=== PATIENT | male | born 1930 | race Caucasian/White ===

== ENCOUNTER 2016-12-07 11:57 | Inpatient (IN) | payer OTHER ==
[~2016-12-07] VITALS: Ht 167.6 cm; Wt 65.2 kg
[2016-12-07] MEDS ORDERED: SODIUM CHLORIDE 0.9% 1,000 ML IV ONE (12:20)
[2016-12-07 12:49] LABS: Basophils # (auto) 0 uL; CONDITION Y; Eosinophils # (auto) 0 uL; Hematocrit 41.9 % (41.0-53.0); Hemoglobin 14.5 g/dL (13.5-17.5); Lymphocytes # (auto) 0.6 uL; Lymphocytes % (auto) 4.7 % (10.0-50.0); Mean Corpuscular Hgb Conc. 34.7 g/dL (32.0-36.0); Mean Corpuscular Volume 92.3 fL (80.0-100.0); Mean Platelet Volume 7.8 fL (7.4-10.4); Monocytes # (auto) 0.9 uL; Monocytes % (auto) 6.9 % (0.0-12.0); Neutrophils # (auto) 11.9 uL; Neutrophils % (auto) 88.4 % (37.0-80.0); Platelet Count (auto) 213 10^3/uL (140-450); Red Cell Distribution Width 13.5 % (11.6-16.0); White Blood Cell 13.4 10^3/uL (4.4-10.8)
[2016-12-07 14:07] LABS: Anion Gap 8 (5-15); Blood Urea Nitrogen 11 mg/dL (7-18); Calcium 8.1 mg/dL (8.5-10.1); Carbon Dioxide 24 mmol/L (21-32); Chloride 100 mmol/L (98-107); Glucose 152 mg/dL (74-106); Potassium 4.3 mmol/L (3.5-5.1); Sodium 132 mmol/L (136-145)
[2016-12-07 14:10] LABS: Aspartate Aminotransferase 25 U/L (15-37); BUN/Creatinine Ratio 11.7; GFR African American 97 mL/min; GFR Non-African American 81 mL/min
[2016-12-07 14:15] LABS: Alkaline Phosphatase 78 U/L (45-117); Bilirubin, Total 1.2 mg/dL (0.2-1.0); Total Protein 7.4 g/dL (6.4-8.2)
[2016-12-07] MEDS ORDERED: cefTRIAXone 1GM/50ML D5W 50 ML IV ONE (15:00)
[2016-12-07] MEDS ORDERED: MORPHINE SULF INJ 2 MG/ML SYRINGE 1ML IV PRN ×2 (15:00→15:15)
[2016-12-07] MEDS ORDERED: DEXTROSE (50%) 50ML SYRG IV PRN (15:00)
[2016-12-07] MEDS ORDERED: NITROGLYCERIN 0.4 MG SL TAB SL PRN (15:00)
[2016-12-07] MEDS ORDERED: LACTULOSE 20Gm/30ML SOLN PO PRN (15:00)
[2016-12-07] MEDS ORDERED: ACETAMINOPHEN 500 MG TAB PO PRN (15:15)
[2016-12-07] MEDS ORDERED: ENOXAPARIN SOD 40 MG/0.4 ML SYRINGE SC ONE (15:15)
[2016-12-07] MEDS ORDERED: PROMETHAZINE HCL 25 MG/ML 1ML IV PRN (15:15)
[2016-12-07] MEDS ORDERED: TEMAZEPAM 15 MG CAP PO PRN (15:15)
[2016-12-07] MEDS ORDERED: LORazepam 0.5 MG TAB PO PRN (15:15)
[2016-12-07] MEDS ORDERED: PANTOPRAZOLE 40 MG TAB PO ONE (15:15)
[2016-12-07] MEDS ORDERED: HYDROcodone-ACET 5/325MG TAB PO PRN (15:15)
[2016-12-07 15:23] LABS: Lactic Acid w/Reflex 2.3 mmol/L (0.4-2.0)
[2016-12-07] MEDS ORDERED: GENTAMICIN PER PHARMACY 0 ML IV SCH (15:30)
[2016-12-07] MEDS ORDERED: VANCOMYCIN PER PHARMACY 0 MG IV SCH (15:30)
[2016-12-07] MEDS: SODIUM CHLORIDE 0.9% 1,000 ML IV SCH (15:45)
[2016-12-07 15:49] LABS: REFLEX LACTIC ACID YES OR NO YES
[2016-12-07 16:13] LABS: Temperature: 24.1 C (20.0-25.0)
[2016-12-07 16:48] LABS: INR 2.71 (0.9-1.15); Prothrombin Time 29.8 sec (9.37-12.3)
[2016-12-07 16:57] LABS: Allen Test Yes; Base Excess -1.6 mmol/L (-2.0-2.0); Blood 02Sat 91.4 % (96-100); Blood COHb 0.4 % (0.5-1.5); Blood MetHb 0.4 % (0.0-1.5); HCO3 21.4 mmol/L (22-26.0); HHb 8.5 % (0.0-5.0); MODE ROOM AIR; O2Hb 90.7 % (94.0-97.0); PCO2 31.7 mmHg (35.0-45.0); PCO2(T) 31.7 mmHg (35.0-45.0); PO2 61.8 mmHg (80.0-100.0); PO2(T) 61.8 mmHg (80.0-100.0); Room 1020-ERT; Sample Type Arterial; pH 7.448 (7.350-7.450)
[2016-12-07] MEDS ORDERED: WARFARIN SODIUM 1 MG TAB PO ONE (17:00)
[2016-12-07] MEDS ORDERED: VANCOMYCIN 1GM/250ML D5W 250 ML IV ONE (17:00)
[2016-12-07 17:10] VITALS: BP 130/72
[2016-12-07] MEDS: ACCU-CHEK COMFORT CURVE STRIP VI SCH (17:28)
[2016-12-07 17:30] VITALS: BP 130/72
[2016-12-07] MEDS ORDERED: ATOR40TA52 PO (18:07)
[2016-12-07] MEDS ORDERED: CLOP75TA41 PO (18:07)
[2016-12-07] MEDS ORDERED: DIGO0.1262 PO (18:07)
[2016-12-07] MEDS ORDERED: METO25TA62 PO (18:07)
[2016-12-07] MEDS ORDERED: DOCU-94 PO (18:07)
[2016-12-07] MEDS ORDERED: WARF2.5T39 PO (18:07)
[2016-12-07] MEDS ORDERED: TAM04C PO (18:07)
[2016-12-07 19:50] LABS: Urine Bilirubin Negative (Negative); Urine Blood Negative /uL (Negative); Urine Color Yellow (Yellow); Urine Glucose Normal (Normal); Urine Ketone Negative (Negative); Urine Mucus FEW (None Seen); Urine Nitrite Negative (Negative); Urine RBC 1 /hpf (0 - 3); Urine Urobilinogen Normal (Negative)
[2016-12-07 21:52] VITALS: BP 124/72
[2016-12-07] MEDS: ATORVASTATIN 20 MG TAB PO SCH (22:17)
[2016-12-07] MEDS ORDERED: DOCUSATE SOD 100 MG CAP PO SCH (22:29)
[2016-12-08] VITALS (7 sets, daily range): BP systolic 109–133; BP diastolic 56–84
[2016-12-08 06:30] LABS: Basophils # (auto) 0 uL; Basophils % (auto) 0.1 % (0.0-2.0); CONDITION Y; Eosinophils # (auto) 0 uL; Eosinophils % (auto) 0.3 % (0.0-7.0); Hematocrit 37.5 % (41.0-53.0); Hemoglobin 12.8 g/dL (13.5-17.5); Lymphocytes # (auto) 1.2 uL; Lymphocytes % (auto) 14.3 % (10.0-50.0); Mean Corpuscular Hemoglobin 31.8 pg (28.0-32.0); Mean Corpuscular Hgb Conc. 34.2 g/dL (32.0-36.0); Mean Corpuscular Volume 93.1 fL (80.0-100.0); Mean Platelet Volume 7.9 fL (7.4-10.4); Monocytes # (auto) 1.2 uL; Monocytes % (auto) 14.6 % (0.0-12.0); Neutrophils # (auto) 5.9 uL; Neutrophils % (auto) 70.7 % (37.0-80.0); Platelet Count (auto) 188 10^3/uL (140-450); Red Cell Distribution Width 13.8 % (11.6-16.0); White Blood Cell 8.3 10^3/uL (4.4-10.8)
[2016-12-08] MEDS: SODIUM CHLORIDE 0.9% 1,000 ML IV SCH ×2 (06:33→10:54)
[2016-12-08] MEDS: ACCU-CHEK COMFORT CURVE STRIP VI SCH ×5 (06:33→21:26)
[2016-12-08 06:42] LABS: INR 2.73 (0.9-1.15); Partial Thromboplastin Time 42.2 sec (22.64-33.71); Prothrombin Time 30.1 sec (9.37-12.3)
[2016-12-08 07:20] LABS: Albumin 2.6 g/dL (3.4-5.0); BUN/Creatinine Ratio 19.1; Bilirubin, Total 0.9 mg/dL (0.2-1.0); Calcium 8.1 mg/dL (8.5-10.1); Potassium 3.6 mmol/L (3.5-5.1); Total Protein 6.6 g/dL (6.4-8.2)
[2016-12-08] MEDS ORDERED: cefTRIAXone 1GM/50ML D5W 50 ML IV SCH (09:00)
[2016-12-08] MEDS ORDERED: PANTOPRAZOLE 40 MG TAB PO SCH (10:00)
[2016-12-08] MEDS ORDERED: DIGOXIN 0.125 MG TAB PO SCH (10:00)
[2016-12-08] MEDS ORDERED: ENOXAPARIN SOD 40 MG/0.4 ML SYRINGE SC SCH ×2 (10:00)
[2016-12-08] MEDS ORDERED: ASPirin 81 mg TAB PO SCH ×2 (10:00)
[2016-12-08] MEDS ORDERED: CLOPIDOGREL BISULFATE 75 MG TAB PO ONE (10:30)
[2016-12-08] MEDS: DOCUSATE SOD 100 MG CAP PO SCH ×2 (10:36→21:23)
[2016-12-08] MEDS: prednisoLONE ACETATE 1% OPTH SUSP 5ML LEFTEYE SCH ×2 (11:59→21:22)
[2016-12-08] MEDS: METOPROLOL TARTRATE 25 MG TAB PO SCH ×2 (12:00→21:23)
[2016-12-08] MEDS ORDERED: SODIUM CHLORIDE 0.9% 1,000 ML IV SCH (13:57)
[2016-12-08] MEDS ORDERED: VANCOMYCIN 1GM/250ML D5W 250 ML IV ONE (14:30)
[2016-12-08] MEDS ORDERED: WARFARIN SODIUM 1 MG TAB PO ONE ×2 (17:00)
[2016-12-08] MEDS: InsuLIN REG 1unit/0.01ml Soln (100units/ml) SC SCH ×2 (17:38→21:25)
[2016-12-08] MEDS ORDERED: TAMSULOSIN HYDROCHLORIDE 0.4 MG CAP PO SCH (18:00)
[2016-12-08] MEDS: ATORVASTATIN 20 MG TAB PO SCH (21:23)
[2016-12-09] MEDS ORDERED: CLOPIDOGREL BISULFATE 75 MG TAB PO SCH (10:00)
== END 2016-12-09 00:10 | disposition short-term general hospital (02) | DRG 871 ==
LOC: EDBD 11:57 → ER 11:57 → TELE 11:58 → TELE-CENTR 17:04
PROVIDERS: ADMIT Internal Medicine; ATTEND Internal Medicine
DX: A41.9 Sepsis, unspecified organism (principal); J96.00 Acute respiratory failure, unspecified whether with hypoxia or hypercapnia; E44.0 Moderate protein-calorie malnutrition; I48.91 Unspecified atrial fibrillation; E11.9 Type 2 diabetes mellitus without complications; E87.1 Hypo-osmolality and hyponatremia; E78.5 Hyperlipidemia, unspecified; I10 Essential (primary) hypertension; E86.0 Dehydration; H40.9 Unspecified glaucoma; E78.00 Pure hypercholesterolemia, unspecified; H54.8 Legal blindness, as defined in USA; I25.10 Atherosclerotic heart disease of native coronary artery without angina pectoris; I70.0 Atherosclerosis of aorta; I95.1 Orthostatic hypotension; Z80.3 Family history of malignant neoplasm of breast; Z82.0 Family history of epilepsy and other diseases of the nervous system; Z82.49 Family history of ischemic heart disease and other diseases of the circulatory system; Z95.1 Presence of aortocoronary bypass graft; Z95.2 Presence of prosthetic heart valve; Z98.61 Coronary angioplasty status; Z88.8 Allergy status to other drugs, medicaments and biological substances; Z88.0 Allergy status to penicillin; Z88.5 Allergy status to narcotic agent; Z68.23 Body mass index [BMI] 23.0-23.9, adult
CPT/HCPCS: 36415; 36600; 70450; 71010; 80053; 80162; 80202; 81001; 82550; 82607; 82746; 82805; 82962; 83036; 83605; 83735; 84443; 84484; 85025; 85379; 85610; 85652; 85730; 87040; 87077; 87086; 87186; 93005; 93306; 94761; 95819; 96361; 96372; 96374; J0696; J1815